=== PATIENT | male | born 1980 | race Asian ===

== ENCOUNTER 2019-08-13 08:19 | Emergency (ER) | payer OTHER ==
--- NOTE | 2019-08-13 08:56 | ED Physician Documentation ---
PD HPI CHEST PAIN - Stated complaint Stated Complaint: CHEST PX - History obtained from History obtained from: Patient - History of Present Illness Timing - onset: Enter time, Today Timing - onset during: Rest Timing - duration: Seconds (5) Timing - details: Abrupt onset, Now resolved Quality: Sharp, Pain Location: Left chest Radiation: No: Jaw, Neck, Back, Abdominal, Left upper extremity, Right upper extremity Improved by: Rest Worsened by: No: Exertion, Inspiration, Eating, Movement, Palpation, Position Associated symptoms: Shortness of air. No: Diaphoresis, Nausea, Vomiting, Feeling faint / dizzy, General Weakness, Palpitations, Cough Similar symptoms before: No diagnosis Recently seen: Clinic - Additional information Additional information: 39-year-old male with a history of gout and a family history of coronary artery disease with early in an uncle has developed acute left-sided chest pain. He describes an episode of chest pain yesterday lasting about 5 seconds and another episode today again lasting about 5 seconds. He describes the pain is sharp severe and in the left chest. There was no radiation he did not develop diaphoresis nausea vomiting or shortness of breath. 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 He has never had this investigated. He has not been ill recently with the exception of an episode of gout last week for which he took some ibuprofen and colchicine and his symptoms have resolved completely. He indicates that he probably took 2 ibuprofen. Review of Systems Constitutional: denies: Fever Eyes: denies: Decreased vision Ears: denies: Ear pain Nose: denies: Rhinorrhea / runny nose, Congestion Throat: denies: Sore throat Cardiac: reports: Chest pain / pressure. denies: Palpitations, Pedal edema, Calf pain Respiratory: denies: Dyspnea, Cough GI: denies: Abdominal Pain, Nausea, Vomiting : denies: Dysuria, Frequency Skin: denies: Rash Musculoskeletal: denies: Neck pain, Back pain, Extremity pain PD PAST MEDICAL HISTORY - Present Medications Home Medications: Ambulatory Orders Medication Instructions Recorded Confirmed Omeprazole 20 mg PO DAILY 08/13/19 08/13/19 Telmisartan [Micardis] 40 mg PO DAILY 08/13/19 08/13/19 - Allergies Allergies/Adverse Reactions: Allergies Allergy/AdvReac Type Severity Reaction Status Date / Time No Known Drug Allergies Allergy Verified 08/13/19 08:59 PD ED PE NORMAL - Vitals Vital signs reviewed: Yes (hpyertensive mild ) - General General: Alert and oriented X 3, No acute distress, Well developed/nourished - HEENT HEENT: Atraumatic, PERRL, EOMI - Neck Neck: Supple, no meningeal sign, No bony TTP - Cardiac Cardiac: RRR, No murmur - Respiratory Respiratory: No respiratory distress, Clear bilaterally, Other (no chest wall tenderness) - Abdomen Abdomen: Soft, Non tender, No organomegaly - Back Back: No CVA TTP, No spinal TTP - Derm Derm: Normal color, Warm and dry, No rash - Extremities Extremities: No deformity, No edema - Neuro Neuro: Alert and oriented X 3, utility pipe layer 2-12 intact, No motor deficit, No sensory deficit, Normal speech Eye Opening: Spontaneous Motor: Obeys Commands Verbal: Oriented GCS Score: 15 - Psych Psych: Normal mood, Normal affect Results - Vitals Vitals: Vital Signs - 24 hr 08/13/19 08/13/19 08/13/19 08:48 09:52 11:09 Temperature 36.7 C Heart Rate 83 78 75 Respiratory 23 16 23 Rate Blood Pressure 133/90 H 111/88 H 108/74 O2 Saturation 98 99 100 Oxygen O2 Source Room air - EKG (time done) 0839 Rate: Rate (enter#) (74) Rhythm: NSR Compare to prior EKG: Old EKG unavailable Computer interpretation: Agree with computer - Labs Labs: Laboratory Tests 08/13/19 08/13/19 08/13/19 09:43 09:43 09:43 WBC 8.3 RBC 5.00 Hgb 15.5 Hct 42.7 MCV 85.4 MCH 31.0 MCHC 36.3 H RDW 12.1 Plt Count 315 MPV 9.0 Neut # (Auto) 4.2 Lymph # (Auto) 3.3 [place] # (Auto) 0.6 Eos # (Auto) 0.1 Baso # (Auto) 0.1 Absolute Nucleated RBC 0.00 Nucleated RBC % 0.0 Sodium 135 Potassium 4.3 Chloride 99 L Carbon Dioxide 23 Anion Gap 13.0 BUN 12 Creatinine 1.1 Estimated GFR (MDRD) 74 L Glucose 107 H Calcium 9.6 Total Bilirubin 1.4 H AST 63 H ALT 140 H Alkaline Phosphatase 63 Troponin I High Sens < 2.3 L Total Protein 8.0 Albumin 4.7 Globulin 3.3 Albumin/Globulin Ratio 1.4 Lipase 35 - Rads (name of study) chest Radiology: Prelim report reviewed (Impression: No acute pulmonary process.), EMP read indepedently, See rad report PD MEDICAL DECISION MAKING - ED course Complexity details: reviewed results, re-evaluated patient, considered differential, d/w patient ED course: 39 y/o male with brief pain episodes seconds only has no findings on evaluation today. The pattern of pain and findings are not consistent with CAD. Departure - Departure Disposition: 01 Home, Self Care Clinical Impression: Atypical chest pain Condition: Stable Instructions: ED Chest Pain Atypical Unkn Cause Follow-Up: Ravindra Marlow MD [Primary Care Provider] - Comments: Today there is a minor elevation in 1 of your liver function tests. The recommendation is to discontinue drinking for at least 1 month and follow-up with your regular doctor for a reevaluation of your liver functions. Discharge Date/Time: 08/13/19 11:14
--- NOTE | 2019-08-13 09:56 | XRAY Report ---
PROCEDURE: Chest 1 View X-Ray INDICATIONS: Chest pain TECHNIQUE: One view of the chest was acquired. COMPARISON: none FINDINGS: Surgical changes and devices: None. Lungs and pleura: No pleural effusions or pneumothorax. Lungs are clear. Mediastinum: Mediastinal contours appear normal. Heart size is normal. Bones and chest wall: No suspicious bony lesions. Overlying soft tissues appear unremarkable. IMPRESSION: No acute pulmonary process. Reviewed by: Stephanie Velazco MD on 08/13/2019 9:55 AM PDT Approved by: Stephanie Velazco MD on 08/13/2019 9:55 AM PDT Station ID: [id number]
[2019-08-13 10:12] LABS: BASOPHILS # (AUTO) 0.1 10^3/uL (0.0-0.1); BASOPHILS % (AUTO) 1.1 %; EOSINOPHILS # (AUTO) 0.1 10^3/uL (0.0-0.7); EOSINOPHILS % (AUTO) 1.6 %; HGB - HEMOGLOBIN 15.5 g/dL (14.0-18.0); LYMPHOCYTES # (AUTO) 3.3 10^3/uL (1.5-3.5); MEAN CORPUSCULAR HGB CONC 36.3 g/dL (32.0-36.0); MEAN CORPUSCULAR VOLUME 85.4 fL (80.0-94.0); MONOCYTES # (AUTO) 0.6 10^3/uL (0.0-1.0); MONOCYTES % (AUTO) 6.6 %; NEUTROPHILS # (AUTO) 4.2 10^3/uL (1.5-6.6); NEUTROPHILS % (AUTO) 50.2 %; PLT - PLATELET COUNT 315 10^3/uL (130-450); RED CELL DISTRIBUTION WIDTH 12.1 % (12.0-15.0); WHITE BLOOD COUNT 8.3 x10^3/uL (4.8-10.8)
[2019-08-13 10:33] LABS: ALBUMIN 4.7 g/dL (3.2-5.5); ALBUMIN/GLOBULIN RATIO 1.4 (1.0-2.2); BILIRUBIN,TOTAL 1.4 mg/dL (0.2-1.0); CALCIUM 9.6 mg/dL (8.5-10.3); CREATININE 1.1 mg/dL (0.6-1.2)
[2019-08-13 11:10] VITALS: BP 108/74
== END 2019-08-13 11:14 | disposition home or self-care (01) ==
LOC: ED 08:19
DX: R07.89 Other chest pain (principal); R74.8 Abnormal levels of other serum enzymes; Z82.49 Family history of ischemic heart disease and other diseases of the circulatory system
CPT/HCPCS: 36415; 71045; 80053; 83690; 84484; 85025; 93005; 99284

== ENCOUNTER 2023-03-20 01:21 | Emergency (ER) | payer OTHER ==
[2023-03-20 05:28] LABS: RAPID STREP SCREEN Negative (Negative)
--- NOTE | 2023-03-20 06:46 | ED Physician Documentation ---
History of Present Illness - Stated complaint Stated Complaint: COVID+/COUGH/HEAD PX - Chief complaint Chief Complaint: Resp - History obtained from History obtained from: Patient - Additonal information Additional information: HPI from patient. Patient c/o chills and diaphoresis, generalized headache, mild shortness of breath, mild nonproductive cough, sore throat. Symptoms started last night. 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 Has not measured his temperature at home. Review of Systems Constitutional: reports: Chills, Myalgias, Sweats Throat: reports: Sore throat Respiratory: reports: Dyspnea, Cough PD PAST MEDICAL HISTORY - Past Medical History Cardiovascular: Hypertension GI: GERD, Ulcers - Past Surgical History Past Surgical History: No - Present Medications Home Medications: Ambulatory Orders Medication Instructions Recorded Confirmed Omeprazole 20 mg PO DAILY 08/13/19 03/20/23 Telmisartan [Micardis] 40 mg PO DAILY 08/13/19 03/20/23 - Allergies Allergies/Adverse Reactions: Allergies Allergy/AdvReac Type Severity Reaction Status Date / Time No Known Drug Allergies Allergy Verified 03/20/23 01:29 - Social History Does the pt smoke?: No Smoking Status: Never smoker Results - Vitals Vitals: Oxygen O2 Source Room air - Labs Labs: Microbiology 03/20/23 05:06 Group A Strep Throat Culture - Final Throat MIXED OROPHARYNGEAL CASSIA PRESENT. NO BETA STREP PRESENT IN CULTURE. Laboratory Tests 03/20/23 05:06 Group A Strep Rapid Negative PD Medical Decision Making - ED course Complexity details: considered differential, d/w patient ED course: Rapid strep negative. Unremarkable exam. His chief concern/complaint is sore throat for which he is given 10mg PO decadron and take-home pack of vicodin. Return precautions discussed. No risk factors for progression to severe disease to indicate Paxlovid Departure - Departure Disposition: 01 Home, Self Care Clinical Impression: Pharyngitis Qualifiers: Pharyngitis/tonsillitis etiology: unspecified etiology Qualified Code(s): J02.9 - Acute pharyngitis, unspecified Condition: Good Instructions: ED Pharyngitis Viral Report Pending Comments: Your strep test was negative. You were given a one-time dose of dexamethasone in the ER. This is a steroid and many patients find that this helps reduce the swelling and pain of pharyngitis. You can use an [id number] NSAID (ibuprofen) per label instructions for pain. Regarding when it is safe to end isolation and return to work: Google "CDC isolation" and then click on the link to "Isolation and Precautions for People with COVID-19 - CDC". This will have useful information for you as well as household contacts. There is a calculator on the page that will determine when you can end isolation. Forms: Activity restrictions Discharge Date/Time: 03/20/23 08:11
[2023-03-20] MEDS: CHERRY SYRUP 10 ML UDC PO ONE (07:55)
[2023-03-20] MEDS: HYDROcod/ACET 5/325 Prepack 4 PO STA (07:56)
[2023-03-20] MEDS: DEXAMETHASONE 10 MG/ML VIAL PO STA (07:56)
[2023-03-20 08:15] VITALS: BP 131/85; O2SAT 96
== END 2023-03-20 08:11 | disposition home or self-care (01) ==
LOC: ED 01:21
DX: J02.9 Acute pharyngitis, unspecified (principal); I10 Essential (primary) hypertension; Z79.899 Other long term (current) drug therapy
CPT/HCPCS: 87070; 87430; 99283; A9270